=== PATIENT | male | born 1985 | race Caucasian/White ===

== ENCOUNTER 2020-06-20 19:32 | Inpatient (IN) | payer BC ==
[~2020-06-20] VITALS: Ht 162.6 cm; Wt 71.2 kg
--- NOTE | 2020-06-20 19:46 | NUR ---
CALLED TO TRIAGE, PT'S RESPONDED "IM FINISHING UP PAPERWORK AT THE WINDOW".
[2020-06-20 19:50] VITALS: Ht 162.6 cm; Wt 71.2 kg
[2020-06-20 20:23] LABS: PLATELET COUNT 157 x10^3mcL (130-400)
[2020-06-20 20:38] LABS: RED CELL DISTRIBUTION WIDTH 21.8 % (11.5-14.5)
[2020-06-20 20:40] LABS: CARBON DIOXIDE 25.8 mmol/L (21-32); CHLORIDE SERUM 103 mmol/L (98-107); CREATININE SERUM 0.9 mg/dL (0.7-1.3); GFR1 > 60 mL/min; GLUCOSE SERUM 100 mg/dL (74-106); POTASSIUM SERUM 3.8 mmol/L (3.5-5.1); SODIUM SERUM 137 mmol/L (136-145)
[2020-06-20 20:44] LABS: ALBUMIN 3.4 g/dL (3.4-5.0); ALKALINE PHOSPHATASE 26 U/L (46-116); ALT/SGPT 40 U/L (16-63); AST/SGOT 38 U/L (15-37); BILIRUBIN TOTAL 0.2 mg/dL (0.20-1.00); TOTAL PROTEIN, SERUM 6.6 g/dL (6.4-8.2)
--- NOTE | 2020-06-20 20:48 | NUR ---
PATIENT SEEN WITH COMPLAINT OF GASTRIC COMPLAINT ,POSSIBLE GI BLEED. MD AT THE BEDSIDE.
[2020-06-20 21:09] LABS: BAND NEUTROPHIL 0 % (0-10); MONOCYTE 1 % (0-7); SEGMENTED NEUTROPHILS 57 % (37-75)
[2020-06-20 21:10] LABS: BASOPHIL 0 % (0-2); rbc morphology (normal/abnorm) ABNORMAL (NORMAL)
--- NOTE | 2020-06-20 22:41 | NUR ---
REPORT WAS GIVEN TO ZAIRA. PATIENT TRANSPORTED ROOM 252B.
[2020-06-20 23:10] VITALS: BP 122/38
[2020-06-21] VITALS (8 sets, daily range): BP systolic 107–129; BP diastolic 52–70
--- NOTE | 2020-06-21 00:17 | NUR ---
INITIATED BLOOD TRANSFUSION,BLOOD PRODUCTS WAS DOUBLE CHECK WITH ANOTHER NURSE,NO ADVERSE REACTION NOTICE AT THIS TIME,WILL CONTINUE TO MONITOR.
--- NOTE | 2020-06-21 00:22 | NUR ---
ADMITTED THE PATIENT TO THE FLOOR,PT CAME TO THE FLOOR VIA [facility]ERNEY AND WAS ACCOMPANIED BY THE NURSE,PT WAS RECIEVED TO THE BED MADE COMFORTABLE IN BED, ON INITAIL ASSESSMENT PATIENT IS AAO IRAQI SPEAKING ONLY,PT HAD HL TO THE LT FOREARM WITH THE SITE PATENT AND INTACT,ABDO IS SOFT WITH ACTIVE BOWEL SOUNDS,PT LOOKS PALE,V/S STABLE,PATIENT WAS ORIENTED TO THE CALL LIGHT BED CONTRAL TELE MONITOR AND WAS MADE COMFORTABLE IN BED,CALL LIGHT EASY REACHED AND WILL CONTINUE TO MONITOR.
--- NOTE | 2020-06-21 02:34 | NUR ---
FIRST UNIT OF BLOOD COMPLTED WITHOUT ANY REACTION NOTICE T THIS TIME,WILL CONTINUE TO MONITOR.
--- NOTE | 2020-06-21 05:00 | NUR ---
SECOND UNIT OF BLOOD TRANSFUSION COMPLETED WITHOUT ANY REACTION NOTICE AND WILL CONTINUE TO MONITOR.
[2020-06-21 06:39] LABS: PLATELET COUNT 147 x10^3mcL (130-400)
--- NOTE | 2020-06-21 06:39 | NUR ---
PT HAD A RESTING NIGHT NO CHAANGE AT THIS TIME,WILL CONTINUE TO MONITOR.
--- NOTE | 2020-06-21 07:09 | NUR ---
PATIENT SIGN CONSENT FOR THE EGD ORDER AND WAS ENDORSED TO TH AM NURSE.
[2020-06-21 07:30] LABS: CALCIUM 7.9 mg/dL (8.5-10.1); CARBON DIOXIDE 28.5 mmol/L (21-32); CHLORIDE SERUM 105 mmol/L (98-107); CREATININE SERUM 0.9 mg/dL (0.7-1.3); GFR1 > 60 mL/min; GLUCOSE SERUM 98 mg/dL (74-106); POTASSIUM SERUM 4.2 mmol/L (3.5-5.1); SODIUM SERUM 136 mmol/L (136-145)
--- NOTE | 2020-06-21 07:30 | NUR ---
PT ENDORSE TO ME THIS MORNING, LAYING IN BED RESTING AA/O X4 BREATHING EVEN AND UNLABORED ON RA NO ACUTE RESP DISTRESS OR SOB NOTED/ OCCITAN SPKING. TELE 13 NSR NOTED. REMAINS NPO FOR POSSIBLE PROCEDURE THIS AM. DENIES ANY ABD OR DISCOMFORT AT THIS TIME. GEN WEAKNESS/ AMB. SKIN INTACT. IV TO THE LFA INTACT AND PATENT/ STARTED D5 % NACL 80 ML/HR TOLERATING WELL. CALL LIGHT IN REACH. BED IN LOW POSITION. WILL CONITNUE TO MONITOR.
[2020-06-21 08:08] LABS: RED CELL DISTRIBUTION WIDTH 28.7 % (11.5-14.5)
--- NOTE | 2020-06-21 10:15 | NUR ---
DR. STEWARD AT BEDSIDE EXPLAINING PROCEDURE TO PT. PT NOW TAKEN TO GI FOR EGD. IV TO THE LFA INTACT AND PATENT/ HEPLOCKED. WILL CONTINUE TO MONITOR. WHEN PT RETURNS.
--- NOTE | 2020-06-21 11:25 | NUR ---
IN THE UNIT AND ORDERED PT A LOADING DOSE OF PROTONIX 80MG IV X1 THEN PROTONIX DRIP 8MG, CALLED TO PHARMACY AND SPOKE TO ZACKERY AND TALK TO ZACKERY AND GAVE HIM INSTRUCTION ABOUT THR PROTONIX DRIP. BREN GREGG ASSIGNED TO THIS PT MADE AWARE OF ABOVE.
--- NOTE | 2020-06-21 11:30 | NUR ---
PT BACK FROM GI LAB/ RECONNECTED TO TELE13 NSR NOTED HR 67/ DENIES ANY CP OR PRESSURE/ OR ABD PAIN AT THIS TIME. PT AMB TO BATHROOM X1 BM DARK STOOL NOTED. BERATHING EVEN AND UNLABORED ON RA NO ACUTE RESP DISTRESS OR SOB NOTED. VS STABLE WILL CONTINUE TO MONITOR.
[2020-06-21 11:56] LABS: BAND NEUTROPHIL 2 % (0-10); MONOCYTE 3 % (0-7); SEGMENTED NEUTROPHILS 55 % (37-75); rbc morphology (normal/abnorm) ABNORMAL (NORMAL)
[2020-06-21 11:57] LABS: PLATELET MORPHOLOGY LARGE PLATELET SEEN; ovalocyte/elliptocyte 1+; schistocyte (helmet cell) 1+; target cell (codocyte) 1+; tear drop cell (dacryocyte) 1+
--- NOTE | 2020-06-21 12:14 | NUR ---
NEW IV TO THE RFA 20 G INTACT AND PATENT/ GOOD BLOOD RETURN.
--- NOTE | 2020-06-21 16:17 | NUR ---
BLOOD TRANSFUSION COMPLETE/ VS STABLE/ NO ADVERSE REACTION NOTED/ PENDING CBC
[2020-06-21 18:24] LABS: PLATELET COUNT 148 x10^3mcL (130-400)
[2020-06-21 18:30] LABS: RED CELL DISTRIBUTION WIDTH 29.3 % (11.5-14.5)
[2020-06-21 19:41] LABS: BAND NEUTROPHIL 0 % (0-10); BASOPHIL 0 % (0-2); MONOCYTE 3 % (0-7); SEGMENTED NEUTROPHILS 58 % (37-75); rbc morphology (normal/abnorm) ABNORMAL (NORMAL)
--- NOTE | 2020-06-21 20:00 | NUR ---
PT IS ALERT AND ORIETNED X4, GEORGIAN-SPEAKING. PT BREATHING REGULAR AND UNLABORED ON ROOM AIR. PT DENIES ANY CHEST XOCHITL PAIN OR DIZZINESS, ABD PAIN OR DISCOMFORT AT THIS TIME. PROTONIX DRIP AT ORDERD RATE OF 10ML/HR, WITH IVF INFUSING WITHOUT COMPLICATIONS. PT NPO EXCEPT MEDS ORDERED. PIVS TO LEFT AND RIGHT FOREARM PATENT, NO SIGNS OF INFILTRATION. TELE #13, NSR. PT DENIES ANY SIGNS OF ACTIVE BLEEDING, AND VERBALIZED UNDERSTANDING OF SIGNS AND SYMPTOMS. PT IS INDEPENDENT WITH SELF CARE, SAFETY PRECAUTIONS MAINTAINED, WILL CONTINUE TO MONITOR.
--- NOTE | 2020-06-21 22:18 | NUR ---
PER DR. MANUEL OK TO TRANSFUSE SECOND OF TWO UNITS OF PRBCS. UPDATED REGARDING H/H 7.01/06.
[2020-06-22] VITALS (7 sets, daily range): BP systolic 109–117; BP diastolic 40–62
--- NOTE | 2020-06-22 00:20 | NUR ---
PRIOR TO TRANSFUSION BLOOD PRODUCT AND PATIENT VERIFIED WITH SECOND RN. CONSENT VERIFIED. PRE-TRANSFUSION VITALS AT 0015 TEMP 98.5F, HR 62 BPM, BP 110/57 (72), 18 BREATHS/MIN, SAO2 99% ON ROOM AIR. BLOOD TRANSFUSION INITIATED AT 0020, PT VERBALIZED UNDERSTANDING OF SIGNS/SYMPTOMS OF TRANSFUSION REACTION. RN TO REMAIN AT BEDSIDE TO MONITOR.
--- NOTE | 2020-06-22 02:40 | NUR ---
BLOOD TRANSFUSION OF SECOND OF 2 UNITS PRBC COMPLETE. POST-TRANSFUSION VITALS: 98.2F, HR 58BPM, BP 114/58 (75), 18 BREATHS/MIN, SAO2 99% ON ROOM AIR. PT DENIES CHEST PAIN, ITCHING, SOB, OR ANY DISCOMFOR AT THIS TIME. PT VERBALIZED UNDERSTANDING OF SIGNS/SYMPTOMS OF DELAYED TRANSFUSION REACTION. PT CONTINUED ON IVF D5NS AT 80ML/HR. NO SIGNS OF INFILTRATION AT PIV SITES, WILL CONTINUE TO MONITOR.
--- NOTE | 2020-06-22 06:47 | NUR ---
PT REMAINED A/O X4, ABLE TO MAKE NEEDS KNOWN AND DEMONSTRATED CALL LIGHT USE. PT DENIED ANY PAIN, SOB, DIZZINSES, OR CHEST PAIN/PRESSURE THROUGHOUT NIGHT, NO SIGNS OF TRANSFUSION REACTION FOLLOWING PRBC TRANSFUSION. ALL NEEDS MET AND ANTICPATED. PI IVF AND PROTONIX INFUSING ORDERED WITH NO COMPLICATIONS, NO SIGNS OF INFILTRATION. PT REMAINED NPO. NO SIGNS/SYMPTOMS OF ACTIVE BLEEDING AT THIS TIME. SAFETY PRECAUTIONS MAINTAINED, WILL ENDORSE CARE TO DAY SHIFT RN.
[2020-06-22 07:07] LABS: CALCIUM 7.8 mg/dL (8.5-10.1); CARBON DIOXIDE 26.6 mmol/L (21-32); CHLORIDE SERUM 105 mmol/L (98-107); CREATININE SERUM 0.9 mg/dL (0.7-1.3); GFR1 > 60 mL/min; GLUCOSE SERUM 94 mg/dL (74-106); POTASSIUM SERUM 4.1 mmol/L (3.5-5.1); SODIUM SERUM 138 mmol/L (136-145)
--- NOTE | 2020-06-22 07:20 | NUR ---
PT IS AAOX4, TELE [address] READING NSR. LUNG SOUNDS CTA, ON R/A. NO COUGH OR SOB NOTED. PT HAS IV PROTONIX RUNNING AT 10ML/HOUR FOR GI BLEED. ABDOMEN SOFT, NONTENDER, NONDISTENDED. BOWEL SOUNDS ACTIVE X4 QUADS. DENIES N/V, DIARRHEA, CONSTIPATION. PRIOR SHIFT REPORTS BLACK STOOL. PT DENIES FLANK PAIN AND ABDOMINAL PAIN. PT VOIDS FREELY, AMBULATES INDEPENDENTLY. PT NPO AT THIS TIME WITH D5NS RUNNING TO LFA, SITE WNL. NO S/S OF INFECTION OR INFILTRATION NOTED. IV CATH TO RFA. S/L. SITE WNL, NO S/S OF INFECTION NOTED. CALL LIGHT WITHIN REACH. BED IN LOWEST POSITION. WILL CONTINUE TO MONITOR.
--- NOTE | 2020-06-22 07:30 | NUR ---
PT IS AAOX4. TELE [address] READING NSR. LUNG SOUNDS CTA, ON R/A. ABDOMEN SOFT, NONTENDER, NONDISTENDED. BOWEL SOUNDS ACTIVE X4 QUADS. PT S/P EGD WITH GASTRIC CLIP PLACED FOR GI BLEED. NO S/S OF ACTIVE BLEEDING AT THIS TIME. PT DENIES N/V, DIARRHEA, C/O BLACK STOOL NOTED YESTERDAY. DENIES FLANK PAIN. PT HAS PROTONIX IV RUNNING AT 1OML/HOUR TO LFA AND D5NS RUNNING AT 80/HOUR TO LFA. SITE WNL. IV CATH TO RFA S/L. NO S/S OF INFECTION OR INFILTRATION NOTED AT BOTH SITES. BOTH SITES COVERED WITH CDI DRESSING. NO DISTRESS NOTED. CALL LIGHT WITHIN REACH. BED IN LOWEST POSITION. WILL CONTINUE TO MONITOR.
--- NOTE | 2020-06-22 08:18 | NUR ---
IV PROTONIX GIVEN. PT DENIES ABDOMINAL PAIN, FLANK PAIN. NO S/S OF ACTIVE BLEEDING. PT EDUCATED TO REPORT BM AND ALLOW RN TO ASSESS. PT VERBALIZED UNDERSTANDING. NO DISTRESS NOTED. CALL LIGHT WITHIN REACH. BED IN LOWEST POSITION. WILL CONTINUE TO MONITOR.
[2020-06-22 08:27] LABS: BASOPHIL % 0.3 % (0-2); PLATELET COUNT 134 x10^3mcL (130-400)
[2020-06-22 08:36] LABS: RED CELL DISTRIBUTION WIDTH 30.4 % (11.5-14.5)
--- NOTE | 2020-06-22 09:20 | NUR ---
SPOKE WITH DR. TIJERINA REGARDING PT. REPORTED HGB=8 AND NO S/S OF ABDOMINAL PAIN OR ACTIVE BLEEDING. DR. TIJERINA STATED HE HAD MET WITH PT AND REPORTED THAT DR. [facility] REQUESTED THE PT BE MONITOR 48 HOURS FOR BLEEDING AND THAT THE DIET WILL BE ADVANCED TO FULL LIQUIDS.
[2020-06-22] MEDS ORDERED: PROTONIX TR40 M1 PO (09:33)
--- NOTE | 2020-06-22 10:37 | NUR ---
RECEIVED ORDER FROM DR. TIJERINA TO DISCONTINUE IV FLUIDS PT IS NOW ON FULL LIQUID DIET.
--- NOTE | 2020-06-22 10:44 | NUR ---
LEVOFLOXIN IVPB STARTED. PT DENIES PAIN. CALL LIGHT WITHIN REACH.
--- NOTE | 2020-06-22 11:46 | NUR ---
VERIFIED WITH [facility] PHARMACIST THAT DR. JOHN NOTED THE PROTONIX DRIP IV IS CONTINUE FOR TODAY. CRISTINO MARTINI CHARGE STATED DR. JOHN STATED THAT THE DRIP SHOULD CONTINUE TODAY.
[2020-06-22 13:08] LABS: ovalocyte/elliptocyte 2+; rbc morphology (normal/abnorm) ABNORMAL (NORMAL); target cell (codocyte) 1+
--- NOTE | 2020-06-22 13:31 | NUR ---
PT TOLERATED FULL LIQUID DIET FOR LUNCH WITH NO COMPLAINTS. DENIES N/V AND ABDOMINAL. PROTONIX IV GIVEN. NO DISTRESS NOTED. CALL LIGHT WITHIN REACH.
--- NOTE | 2020-06-22 15:00 | NUR ---
PT RESTING, RESP EVEN AND UNLABORED. NO DISTRESS NOTED. CALL LIGHT WITHIN REACH.
--- NOTE | 2020-06-22 19:01 | NUR ---
PT RESTING, RESP EVEN AND UNLABORED. NO DISTRESS NOTED. CALL LIGHT WITHIN REACH.
--- NOTE | 2020-06-22 19:09 | NUR ---
PT RECEIVED FROM AM NURSE. PT A/O X4, SALVADOREAN SPEAKING, ABLE TO MAKE NEEDS KNOWN. TELE # 13, NSR, PT DENIES ANY CP/PRESSURE. PULSES PALPABLE, NO EDEMA PRESENT. BREATHING IS EVEN AND UNLABORED ON RA, NO RESP DISTRESS NOTED. ABD SOFT AND NONDISTENDED, BOWEL TONES ACTIVE X4 QUAD, PT DENIES ANY N/V. FULL LIQUID DIET, TOLERATING WELL. NO S/S OF ACTIVE BLEED OBSERVED. VOIDS FREELY, BRP. AMBULATORY W/ STEADY GAIT. SKIN IS WARM AND DRY, INTACT. PT DENIES HAVING ANY PAIN AT THIS TIME. PROTONIX IV @ 10 ML/HR TO LFA, SITE FREE FROM REDNESS OR SWELLING. NO ACUTE DISTRESS NOTED. BED IN LOWEST SETTING, SIDE RAILS UP X2, CALL LIGHT WITHIN REACH. WILL CONT TO MONITOR .
--- NOTE | 2020-06-22 19:35 | NUR ---
ENDORSE ALL CARE TO SEBASTIEN Martínez RN.
--- NOTE | 2020-06-23 01:33 | NUR ---
PT RESTING IN BED WITH EYES CLOSED, BUT IS EASILY AROUSABLE. BREATHING IS EVEN AND UNLABORED, NO RESP DISTRESS NOTED. PT DENIES HAVING ANY PAIN AT THIS TIME. PRONTONIX IV INFUSING WELL, SITE WNL. NO ACUTE DISTRESS NOTED. CALL LIGHT WITHIN REACH. WILL CONT TO MONITOR.
[2020-06-23 05:38] VITALS: BP 94/55
--- NOTE | 2020-06-23 05:49 | NUR ---
PT SLEPT WELL THROUGHOUT THE EVENING. BREATHING IS EVEN AND UNLABORED, NO RESP DISTRESS NOTED. NO S/S OF ACTIVE BLEEDING OBSERVED. PT CONTINUES ON FULL LIQUID DIET AND TOLERATING WELL. PT DENIES HAVING ANY PAIN AT THIS TIME. PROTONIX IV INFUSING WELL, SITE WNL. NO ACUTE CHANGES ENCOUNTERED DURING SHIFT. ALL NEEDS MET AND ANTICIPATED. CALL LIGHT WITHIN REACH. WILL ENDORSE CARE TO AM NURSE.
[2020-06-23 07:44] LABS: CALCIUM 8.5 mg/dL (8.5-10.1); CARBON DIOXIDE 28.8 mmol/L (21-32); CHLORIDE SERUM 103 mmol/L (98-107); CREATININE SERUM 0.9 mg/dL (0.7-1.3); GFR1 > 60 mL/min; GLUCOSE SERUM 90 mg/dL (74-106); POTASSIUM SERUM 4.2 mmol/L (3.5-5.1); SODIUM SERUM 139 mmol/L (136-145)
[2020-06-23 07:52] LABS: PLATELET COUNT 149 x10^3mcL (130-400)
--- NOTE | 2020-06-23 08:12 | NUR ---
PT IN NO ACUTE DISTRESS. BEDSIDE REPORT GIVEN TO METAL REED TUNER, ÁNGEL, FOR CONTINUITY OF CARE. ALL QUESTIONS AND CONCERNS ADDRESSED.
[2020-06-23 08:48] LABS: BASOPHIL % 0 % (0-2); RED CELL DISTRIBUTION WIDTH 30.3 % (11.5-14.5)
[2020-06-23 09:36] VITALS: BP 116/62
[2020-06-23 13:02] VITALS: BP 116/62
--- NOTE | 2020-06-23 13:05 | NUR ---
RECEIVED BEDSIDE REPORT FROM CRISTINO KANG; PT A/A/O X 4, CALM, COOPERATIVE TO CARE. DENIES CHEST PAIN OR DISCOMFORT AT THIS TIME. NO ACUTE RESPIRATORY DISTRESS NOTED. IV SITE TO RFA 20G, CDI. WILL CONTINUE TO MONITOR.
[2020-06-23 14:09] VITALS: BP 121/69
--- NOTE | 2020-06-23 15:15 | NUR ---
OBTAINED LIGHT DUTY NOTE FROM DR PALACIOS TO BE INCLUDED IN DISCHARGE PACKET, PER PT REQUEST.
--- NOTE | 2020-06-23 15:45 | NUR ---
PT GIVEN DISCHARGE PACKET; DISCUSSED CURRENT STAY INCLUDING PROCEDURES DONE, MEDICATIONS, AND TEACHINGS RE: ANEMIA, GI BLEED, DIET, AND EXERCISE. PT VERBALIZED UNDERSTANDING. ALL FORMS SIGNED AND DATED. IV REMOVED FROM RFA, 20G, SITE NO S/S INFECTION OR BLEEDING. ALL ID BANDS REMOVED. TELE MONITOR # 13 REMOVED AND RETURNED TO TELE STATION. PT THEN GOT DRESSED, AND WAS ACCOMPANIED DOWN TO LOBBY TO BE PICKED UP BY FAMILY MEMBER. PT A/A/O X 4, CALM, COOPERATIVE. DENIES CHEST PAIN, DISCOMFORT, OR RESPIRATORY DISTRESS. NO GAIT OR BALANCE IMPAIRMENT NOTED.
== END 2020-06-23 15:45 | disposition home or self-care (01) | DRG 378 ==
LOC: ED 19:32 → DU 21:20
PROVIDERS: Internal Medicine; Internal Medicine Pulmonary Disease; ADMIT Internal Medicine Pulmonary Disease; ATTEND Internal Medicine Pulmonary Disease
PROC: 0W3P8ZZ Control Bleeding in Gastrointestinal Tract, Via Natural or Artificial Opening Endoscopic (ICD-10-PCS; principal; 2020-06-21 09:30)
PROC: 30233N1 Transfusion of Nonautologous Red Blood Cells into Peripheral Vein, Percutaneous Approach (ICD-10-PCS; 2020-06-21 09:30)
DX: K27.4 Chronic or unspecified peptic ulcer, site unspecified, with hemorrhage (principal); D62 Acute posthemorrhagic anemia; D64.9 Anemia, unspecified; R55 Syncope and collapse
CPT/HCPCS: 43235; C9113; G0378; J0171; J1200; J1610; J2250; J2310; J3010; J3490; J7030; J7040; J7042; J7050; P9016